=== PATIENT | female | born 2005 | race Caucasian/White ===

== ENCOUNTER 2024-04-11 02:11 | Emergency (ER) | payer OTHER, SELFPAY ==
[2024-04-11] MEDS ORDERED: Ibuprofen 200 MG TAB ONE (03:21)
== END 2024-04-11 03:33 | disposition home or self-care (01) ==
LOC: CSHERS 02:11
DX: R51.9 Headache, unspecified (principal); R42 Dizziness and giddiness; R29.700 NIHSS score 0
CPT/HCPCS: 71045; 93005